=== PATIENT | male | born 1945 | race Caucasian/White ===

== ENCOUNTER → 2018-04-03 09:00 | Outpatient (CLI) | payer MEDICARE, BC, SELFPAY | PROVIDERS: PCP Emergency Medicine; Visit Provider Student in an Organized Health Care Education/Training Program | DX: M76.32 Iliotibial band syndrome, left leg (principal); M70.32 Other bursitis of elbow, left elbow | CPT/HCPCS: 99214 ==

== ENCOUNTER 2018-04-29 15:00 | Outpatient (RCR) | payer MEDICARE, BC, SELFPAY ==
--- NOTE | 2018-04-05 14:30 | PTTR_ITS ---
DATE: 04/05/18 SUBJECTIVE: Barrington states that he is looking to progress his HEP with some theraband. He brings in his yellow and green theraband to demonstrate some of his home activities such as side stepping. Had a good meeting with Dr. Schwartz who did confirm that this is likely an ITB issue. No injection was offered. Ultrasound [id number]: Applied 1 mhz, 50% pulsed duty phonophoresis to the proximal ITB 1.0 w/cm3 with dex followed Manual therapy: (91372w2). Piriformis/ITB stretching using hold/relax techniques. Therapeutic procedures (18446a7). Upgrade his HEP incorporating yellow theraband for piriformis, clam shell and bridging exercises. Verbal and tactile cues for proper hip alignment and engagement of TA musculature. Then completed remainder of his strengthening via wellness. Direct treatment time: 45 mins Total treatment time: 60 mins P: Continue as above, will resume soft tissue mobilization next visit. MM/dl
--- NOTE | 2018-04-08 16:09 | PTTR_ITS ---
DATE: 04/08/18 SUBJECTIVE: Barrington continues to report improvements in intensity and frequency of the clicking in his lateral hip. He is sleeping through the night painfree on his left side, now. OBJECTIVE: Manual therapy: (63247f4). IASTM via Graston Techniques using fanning and sweeping with GT 1 and GT 4 along the upper half of the IT band as well as IT band splaying with GT 4 and some trochanteric framing with GT 3. This was followed by hold relax stretching of the IT bands in supine using horizontal adduction. This is with the hip flexed approximately 25 to 30 . Therapeutic procedures (18615m2). * x See flow sheet: glute medius and piriformis strengthening. * Verbal and tactile cues were offered for proper pelvic alignment to avoid compensatory movement patterns. * [x] Ultrasound - (x 8 mins) - 33373a1: applied @1 megahertz 50% pulsed @ 1.0 watt per cm sq to the superior aspect of the IT band just inferior to the greater trochanter on the left with Dex gel Direct treatment time: 3:00 til 3:45 P.M. Assessment: Holding up very well with progression of strengthening. Improvements noted subjectively with decreased frequency and intensity of clicking in the hip. Plan: Continue as indicated above decreasing to 1x per week frequency. MM/gc
--- NOTE | 2018-04-15 14:14 | PTTR_ITS ---
DATE: 04/15/18 SUBJECTIVE: Barrington states that he had some discomfort yesterday of unknown source. Complained of lateral hip pain. Thinks he may have slept on it awkwardly. Overall, is making good gains with his frequency of clicking. Holding up well with his HEP. OBJECTIVE: Manual therapy: (94466u3). Left hip mobs inferiorly and laterally as well as stretching of the IT band, piriformis, hamstrings and soft tissue mobs via Graston Techniques to the IT band using GT 1 and GT 4 through the proximal half of the IT band and inferior aspect of the greater trochanter. Framing was done with GT 3 around the greater trochanter. He went on to complete a ther-ex routine with the COLD TYPE ARTIST. See her note for details. Direct treatment time: 2:30 til 3:00 P.M. Plan: Continue 1x per week. He is holding up well on a 1x per week frequency. Did discontinue ultrasound today. MM/gc
--- NOTE | 2018-04-15 15:00 | PTTR_ITS ---
DATE: 04/15/18 Co-treat with supervising PT, Benton Gr. OBJECTIVE: Therapeutic procedures (75792p2). * x See flow sheet: Focus on hip stabilization on the left. Added hip abduction on Hip Deck with Air Ex Pad and hip hicker with Air Ex Pad was added to program. Upgraded bridging with T-band abduction by adding Kyler Disc under feet. Performed an additional 20 minutes of wellness with assistive personnel at no charge. * x Provided skilled instruction in proper exercise performance * x Provided skilled manual cues to facilitate proper muscle recruitment and/ or movement pattern * Declined modalities at conclusion of session. Direct treatment time: 20 minutes Total treatment time: 40 minutes, post time spent with supervising PT.
--- NOTE | 2018-04-22 14:30 | PN_ITS ---
DATE: April 22, 2018 REFERRING: Dr. Zhao REFERRING PROVIDER DIAGNOSIS:: L hip pain PHYSICAL THERAPY DIAGNOSIS: REPORTING PERIOD (for progress note and discharge note only): 03/15/18 to SUBJECTIVE: Patient continues to report decreased frequency and intensity of L hip pain and popping. Admits the higher the stair, the more evident his click/pop is. He is sleeping through the night without discomfort in L sidelying position. Reports compliancy with his HEP. Standardized Measures: * Lower Extremity Functional Scale Score (LEFS): 24%, compared to 26% at [facility]. The biggest change thus far was stair negotiation, moving from a category of moderate difficulty to a little bit of difficulty. OBJECTIVE: Seen in PT Treatment: Manual Therapy [id number]: Performed instrument assisted soft tissue mobilization via Graston technique to the proximal third of the ITB with fanning and sweeping with GT 1 and 4 as well as some strumming on the proximal aspect of the ITB, inferior to the trochanter. Performed hold/relax stretching of ITB, TFL musculature. Treatment time: 30 mins with continued care with Ngozi Beck PTA (see her note) ASSESSMENT: Subjective/objective gains being made both with strength, flexibility, and pain levels. He no longer has a (+) Loy's testing on L. grinder tender to palpation over the superior aspect of ITB. Subjectively reports having reached STG 2&3. He is also independent with his HEP. All STG have been MET. LT remains appropriate and progressing towards. Stair ascension, dissension and uphill/down hill ambulation no longer significantly limited other than some occasional clicking particularly with higher steps where the ITB is likely being positioned to the greater trochanter, then returning to neutral hip position as it passes over the trochanter, experiencing the click, which is minimally painful now. Progressing towards LTG SEE BELOW: G-Codes (fill in modifier after appropriate code): Patient's primary functional limitation is in the category of: __x__ Mobility - walking and moving around : [id number] Projected goal: __x__ Mobility - walking and moving around: [id number], BASED ON LEFS STG: __6__ weeks. 1: Independent in HEP. 2: Improve sleeping tolerance to L sidelying positions by 75% 3: Patient performing uphill ambulation and stair ascension without limitation due to pain. LTG: __12__ weeks. 1: Return to premorbid level of function. PLAN: Continue as above on once a week basis, continuing to progress with hip stabilization. MM/dl
--- NOTE | 2018-04-22 15:00 | PTTR_ITS ---
DATE: 04/22/18 Co-treat with supervising PT, Benton Gr. OBJECTIVE: Therapeutic procedures ([id number]) * x See flow sheet: Following independent activity on stationary bike patient completed ther ex with focus on left hip stabilization. * x Provided skilled instruction in proper exercise performance * x Provided skilled manual cues to facilitate proper muscle recruitment and/ or movement pattern * Ended session with cryotherapy x 10 minutes to left hip. Direct treatment time: 20 minutes Total treatment time: 30 minutes
--- NOTE | 2018-04-29 08:11 | PTTR_ITS ---
DATE: 04/29/18 Co treatment with MOMO MirzaT: OBJECTIVE: Therapeutic procedures (70408n2). * x See flow sheet: for global LE strengthening with focus on gluts and hip stabilization. * x Provided skilled instruction in proper exercise performance: proper glut engagement. Direct treatment time: 20 min Total treatment time: 20 min
--- NOTE | 2018-04-29 15:30 | PTTR_ITS ---
DATE: 04/29/18 SUBJECTIVE: Patient states he exacerbated his hip pain by going on an 8 mile hike followed by a 5 mile hike the next day. Had increased clicking on the 2nd day hike. This left him in some increased discomfort that lasted a day or so. Did not ice, foam roll or take any medicine. Manual therapy: (11244n1). L hip mobilization, inferior, laterally as well as AAROM through flexion/abduction, IR/ER followed by hold/relax stretching, piriformis, ITB. We talk about self management of symptoms using ice, foam rolling tactics. ROM is near full on L with some mild discomfort at end range IR. This appears to be capsular though. Direct treatment time: 30 mins Total treatment time: 30 mins P: Continue 1x a week basis, will reconsider performing some instrument assisted soft tissue mobilization next visit if he is still symptomatic. MM/dl
== END 2018-05-03 23:59 | disposition home or self-care (01) ==
LOC: PT 15:00
PROVIDERS: PCP Emergency Medicine; Referring Provider Emergency Medicine; Visit Provider Emergency Medicine
DX: M70.62 Trochanteric bursitis, left hip (principal)
CPT/HCPCS: 97035; 97110; 97140; G8978

== ENCOUNTER 2018-09-30 04:18 | Emergency (ER) | payer MEDICARE, BC, SELFPAY ==
[2018-09-30 04:23] VITALS: BP 155/99; PULSE 77; RESP 15; TEMP 36.5; O2SAT 99
--- NOTE | 2018-09-30 04:45 | ED.GENADUL_ITS ---
Discharge Plan Disposition Patient Disposition: STILL A PATIENT Condition: Good Discharge Details Chief Complaint: FlankPain Clinical Impression: Kidney stone Primary Care Provider: Aman Zhao ED Provider: Lourdes Colon Home Meds and New Rx's Prescriptions: New hydrocodone-acetaminophen 7.5-325 mg tablet 1 tab PO Q6H PRN (Reason: pain) Qty: 5 RF: 0 tamsulosin 0.4 mg capsule 0.4 mg PO DAILY Qty: 7 RF: 0 No Action mometasone [Nasonex] 50 mcg/actuation spray,non-aerosol 2 spray NS DAILY PRNRF: 0 Crxazawz-Icxwye-RXX with vit D 1 EACH tablet 1 ea PO DAILY RF: 0 cetirizine 10 MG tablet 10 mg PO DAILY Qty: 90 RF: 3 ranitidine HCl [Zantac Maximum Strength] 150 MG tablet 150 mg PO BID Qty: 90 RF: 2 Eliquis 5 mg tablet 5 mg PO BID Qty: 180 RF: 3 Discharge Instructions Instructions: Kidney Stones (ED) Additional Instructions: Please strain your urine to look for the kidney stone. Please take the pain medication appearance. Please take the Flomax as directed until your symptoms are relieved with the stone passes. If you notice any worsening of your symptoms, or any new symptoms such as vomiting, diarrhea, fever, chills, shortness of breath, chest pain, numbness, weakness, or fainting , please return immediately to the emergency department for reevaluation. Please follow up with your primary care provider as soon as possible for reassessment and reevaluation. As always, it was a pleasure participating in your medical care today. Referrals: Aman Zhao DO [Primary Care Provider] - Discharge Data Discharge Date/Time-TO BE ENTERED AT DEPARTURE: 09/30/18 08:51 Medical Decision Making <González Forrester DO - Last Filed: 09/30/18 23:07> This is a pleasant 73-year-old male who presents for left flank pain. Is been present for the last 3-4 days but has been continuous for the last 10 hours. It is aching and sharp in nature, and radiates from his left flank to his left pelvis. He does have a sensation of urinary fullness and frequency. No red flags of testicular tenderness or signs of testicular torsion. We will get a CT scan to evaluate for acute process, however differential is highest for urolithiasis. Differential includes but I feels less likely diverticulitis or musculoskeletal etiology. Because of his Eliquis use will hold off on Toradol for the time being. 6:[address] scan has returned does show evidence of a left-sided urolithiasis. It is at the UVJ. Stone may be irregularly-shaped versus 2 2 x 2 mm calculus'. Pain is well controlled at this time. We have given an oral dose of Flomax here in the ED. Patient's laboratory workup is otherwise benign, renal function is slightly increased but otherwise stable. Are still pending urinalysis. Once the patient does urinate, if there is no evidence of infection since his pain is well controlled I feel he would be a good candidate for discharge. Because the patient is unable to tolerate ibuprofen/Motrin, I do feel that narcotics are both reasonable and indicated at this time. We will send the patient home with a small prescription for narcotic medication for pain control only to be used as needed. 7:33 AM Were still pending urinalysis. Patient will be signed out to my colleague Dr. Colon. I feel he can be safely discharged home if there is no evidence of infection. FINDINGS: Lower thorax: Basilar dependent pulmonary atelectasis is present. ABDOMEN: Liver: Normal. No mass. Gallbladder and bile ducts: Normal. No calcified stones. No ductal dilation. Pancreas: Normal. No ductal dilation. Spleen: Normal. No splenomegaly. Adrenals: Normal. No mass. Kidneys and ureters: Bilateral nonobstructing nephrolithiasis noted. Mild left- sided hydronephrosis and hydroureter noted to the level of the UVJ where an obstructing calculus measures approximately 2 x 2 millimeters. What may reflect an adjacent calculus measures approximately 2 mm versus an irregularly shaped single calculus. Stomach and bowel: Colonic diverticulosis is present without evidence for inflammation. Appendix: No evidence of appendicitis. PELVIS: Bladder: Unremarkable as visualized. Reproductive: Unremarkable as visualized. ABDOMEN and PELVIS: Intraperitoneal space: Normal. No free air. No significant fluid collection. Bones/joints: Lumbar spine degenerative disc disease is noted. Soft tissues: Unremarkable. Vasculature: Normal. No abdominal aortic aneurysm. Lymph nodes: Normal. No enlarged lymph nodes. IMPRESSION: Mild left-sided hydronephrosis and hydroureter noted to the level of the UVJ where an obstructing calculus measures approximately 2 x 2 millimeters. What may reflect an adjacent calculus measures approximately 2 mm versus an irregularly shaped single calculus. Thank you for allowing us to participate in the care of your patient. Dictated and Authenticated by: Ian Draper MD 09/30/2018 5:36 AM Eastern Time ([place] & [place]) <Lourdes Colon MD - Last Filed: 10/08/18 13:26> Patient signed out to me by Dr. Forrester at time of shift change pending UA. Prior to my assuming care, discharge paperwork printed and discharge discussion had by Dr. Forrester. UA shows no infection. Okay for discharge home. HPI <González Forrester DO - Last Filed: 09/30/18 23:07> General Date/Time Provider Initiated Documentation: 09/30/18 04:31 . HPI Narrative: This is a very pleasant 73-year-old male with a past medical history of pulmonary embolism on Eliquis, who presents today for evaluation of left flank pain peer it is been present for the last 3-4 days. It first started 4 days ago where is brief, achy, it lasted an hour, and happened again 2 days ago, also brief, and again yesterday. Last night at 1 AM he noticed the pain come back, sharp and achy, it went from his left flank and radiated down to the anterior pelvic region. No radiation to the genitals. He admits to increase sensation of urinary need, and a full bladder, but denies any dysuria or increase in urinary frequency. He denies any hematuria. He denies a history of kidney stones. He had one episode of vomiting earlier today, but denies any diarrhea. He denies any chest pain, shortness of breath, numbness tingling or weakness. He has taken acetaminophen, last time was at 3 AM. He denies any other modifying factors or any other complaints at this time. He denies any previous abdominal surgeries. Related Data Home Medications Medication Instructions Recorded Confirmed [id number] 2-C-D3-tonny 1 ea PO DAILY 01/29/18 10/03/18 [Mgpjjrmeva-Ofhrlxendcj-Onv Tab] cetirizine 10 mg PO DAILY #90 tab-cap 02/22/18 10/03/18 ranitidine HCl [Zantac] 150 mg PO BID #90 tab-cap 04/16/18 10/03/18 apixaban 5 mg tablet 5 mg PO BID #180 tab 06/11/18 10/03/18 mometasone 50 mcg/actuation nasal 2 spray NS DAILY PRN gm 08/08/18 10/03/18 spray hydrocodone-acetaminophen 1 tab PO Q6H PRN #5 tab 09/30/18 10/03/18 tamsulosin 0.4 mg PO DAILY #7 cap 09/30/18 10/03/18 Previous Rx's Medication Instructions Recorded cetirizine 10 mg PO DAILY #90 tab-cap 02/22/18 ranitidine HCl [Zantac] 150 mg PO BID #90 tab-cap 04/16/18 apixaban 5 mg tablet 5 mg PO BID #180 tab 06/11/18 hydrocodone-acetaminophen 1 tab PO Q6H PRN #5 tab 09/30/18 tamsulosin 0.4 mg PO DAILY #7 cap 09/30/18 Allergies Allergy/AdvReac Type Severity Reaction Status Date / Time No Known Allergies Allergy Verified 10/03/18 13:26 General Stated Complaint: FlankPain ABILIO: 3 Review of Systems <González Forrester DO - Last Filed: 09/30/18 23:07> Review of Systems All systems reviewed & are unremarkable except as noted in HPI and below PFSH <González Forrester DO - Last Filed: 09/30/18 23:07> Medical History GERD (gastroesophageal reflux disease) Osteoarthritis Seasonal allergies Surgical History [facility] (06/18/15) Extraction of cataract PROCEDURE Family History Mother No problems noted. Father No problems noted. Brother Heart disease Grandfather Neoplasm Grandfather No problems noted. Grandmother Diabetes Grandmother No problems noted. Social History Smoking/Tobacco Use Status: Former Tobacco Use Exam <González Forrester DO - Last Filed: 09/30/18 23:07> Narrative Exam Narrative: 1.Const: Well-nourished, Well-developed, appearing stated age 2.Eyes: PERRL, no conjunctival injection, and symmetrical lids. 3.ENT: Atraumatic external nose and ears. Moist MM. Neck: Symmetric, trachea midline, No thyromegaly. 4.CVS: +S1/S2, No murmurs or gallops. Peripheral pulses 2+ and equal in all extremities. Brisk capillary refill in all extremities. 5.RESP: Unlabored respiratory effort. Clear to auscultation bilaterally. No wheezes rales or rhonchi 6.GI: Soft, Nondistended, No hepatosplenomegaly. No guarding or rebound. Minimal left-sided abdominal tenderness. Testicular exam was performed demonstrates normal bilaterally descended testicles, normal cremasteric reflex. No urethral pain. No scrotal or penile pain. No blood at the urethral meatus. Notable left-sided CVA tenderness on percussion. Negative obturator and psoas sign. 7.MSK: Normocephalic/Atraumatic, Extremities w/o deformity or ttp No cyanosis or clubbing, Normal movement of all extremities 8.Skin: Warm, Dry. No rashes or lesions. 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 Sensation grossly intact, no focal neurologic deficits. 10.Psych: (AAO) x3. Appropriate mood and affect Course <González Forrester, DO - Last Filed: 09/30/18 23:07> Vital Signs Temperature 36.5 C 09/30/18 04:23 Pulse 77 09/30/18 04:23 Respiratory Rate 15 09/30/18 04:23 Blood Pressure 155/99 H 09/30/18 04:23 Pulse Oximetry 99 09/30/18 04:23 Temperature 36.5 C 09/30/18 04:23 Temperature Source Temporal Artery Scan 09/30/18 04:23 Pulse 77 09/30/18 04:23 Respiratory Rate 15 09/30/18 04:23 Respiratory Effort 09/30/18 04:30 Blood Pressure 155/99 H 09/30/18 04:23 Blood Pressure Position Sitting 09/30/18 04:23 Pulse Oximetry 99 09/30/18 04:23 Oxygen Delivery Method Room Air 09/30/18 04:23 Oxygen Flow Rate 0 09/30/18 04:23 Pain Level 6 09/30/18 04:40 Sign Out <González Forrester DO - Last Filed: 09/30/18 23:07> Sign Out Data: Sign Out Comment: Pending urinalysis results, if no infection, discharge home with printed paperwork Last updated by González Forrester DO at 09/30/18 07:45
[2018-09-30] MEDS: MORPHine 10 MG/ML VIAL 4 MG IVP (04:51)
[2018-09-30] MEDS: Normal Saline 1,000 ML 1000 ML IV ×2 (04:51→06:34)
[2018-09-30 04:59] LABS: Abs Immature Grans 0.02 k/cumm (0.0-0.09); Absolute Basophil Count 0.01 k/cumm (0.0-0.2); Absolute Eosinophil Count 0.19 k/cumm (0.0-0.7); Absolute Lymphocyte Count 1.88 k/cumm (1.2-3.4); Absolute Monocyte Count 0.57 k/cumm (0.11-0.7); Absolute Neutrophil Count 4.38 k/cumm (1.2-6.7); Basophils % 0.1; Eosinophils % 2.7; HGB 14.8 g/dL (13.5-17.5); Immature Grans % 0.3; Lymphocytes % 26.7; Mean Corp. HGB Concentration 33.6 g/dL (32.0-36.0); Mean Corpuscular Hemoglobin 28.2 pg (27.0-33.0); Mean Corpuscular Volume 83.8 fL (80-95); Mean Platelet Volume 9.5 fL (8.0-11.0); Monocytes % 8.1; Neutrophils % 62.1; Platelet Count 201 x1000/uL (130-400); RBC 5.25 m/cumm (4.50-6.00); RBC Distribution Width 13.7 % (11.8-14.1); White Blood Cell Count 7.05 k/cumm (4.4-10.8)
[2018-09-30 05:07] LABS: ALT 32 U/L (12-78); AST 24 U/L (15-37); Albumin 3.8 g/dL (3.4-5.0); Alkaline Phosphatase 61 U/L (46-116); Anion Gap 9.3 mmol/L (3-11); BUN 24 mg/dL (7-18); Bilirubin, Total 0.5 mg/dL (0.2-1.0); CO2 27.7 mmol/L (21.0-32.0); CREATININE 1.39 mg/dL (0.70-1.30); Calcium 8.6 mg/dL (8.5-10.1); Chloride 106 mmol/L (98-107); Estimated GFR 50.09 (mL/min/1.73m2); Glucose 103 mg/dL (70-100); Potassium 4.1 mmol/L (3.5-5.1); Sodium 143 mmol/L (136-145); Total Protein 7.4 g/dL (6.4-8.2)
--- NOTE | 2018-09-30 05:20 | DI.CT_ITS ---
SYMPTOM/DIAGNOSIS: LEFT FLANK PAIN, R/O STONE NONCONTRAST CT ABDOMEN AND PELVIS: There is moderate left hydronephrosis secondary to a 2 mm stone at the ureterovesical junction. There is an adjacent 1 mm stone. A tiny nonobstructing stone is seen in the lower pole of the left kidney. Small nonobstructing stone is seen in the mid right kidney. There is a low density area in the mid right kidney, presumably a cyst. This was included on a previous chest CT and appears unchanged. The lung bases appear clear. The liver, gallbladder, spleen, pancreas and adrenals are unremarkable. The prostate appears normal in size. The bladder is unremarkable. Scattered diverticula are noted in the sigmoid colon. There is no evidence of diverticulitis. The appendix appears normal. There is no small bowel dilatation. IMPRESSION: Moderate left hydronephrosis secondary to a 2 mm stone at the ureterovesical junction.
--- NOTE | 2018-09-30 05:36 | DI.VRAD_ITS ---
EXAM: CT Abdomen and Pelvis Without Contrast EXAM DATE/TIME: 09/30/2018 4:41 AM CLINICAL HISTORY: 73 years old, male; Pain; Other: L flank and llq; Patient HX: L flank and llq pain TECHNIQUE: Axial computed tomography images of the abdomen and pelvis without contrast. All CT scans at this facility use at least one of these dose optimization techniques: automated exposure control; mA and/or kV adjustment per patient size (includes targeted exams where dose is matched to clinical indication); or iterative reconstruction. Coronal and sagittal reformatted images were created and reviewed. COMPARISON: CR LEFT HIP COMPLETE \T\ AP PELVIS 01/29/2018 2:59 PM FINDINGS: Lower thorax: Basilar dependent pulmonary atelectasis is present. ABDOMEN: Liver: Normal. No mass. Gallbladder and bile ducts: Normal. No calcified stones. No ductal dilation. Pancreas: Normal. No ductal dilation. Spleen: Normal. No splenomegaly. Adrenals: Normal. No mass. Kidneys and ureters: Bilateral nonobstructing nephrolithiasis noted. Mild left-sided hydronephrosis and hydroureter noted to the level of the UVJ where an obstructing calculus measures approximately 2 x 2 millimeters. What may reflect an adjacent calculus measures approximately 2 mm versus an irregularly shaped single calculus. Stomach and bowel: Colonic diverticulosis is present without evidence for inflammation. Appendix: No evidence of appendicitis. PELVIS: Bladder: Unremarkable as visualized. Reproductive: Unremarkable as visualized. ABDOMEN and PELVIS: Intraperitoneal space: Normal. No free air. No significant fluid collection. Bones/joints: Lumbar spine degenerative disc disease is noted. Soft tissues: Unremarkable. Vasculature: Normal. No abdominal aortic aneurysm. Lymph nodes: Normal. No enlarged lymph nodes. IMPRESSION: Mild left-sided hydronephrosis and hydroureter noted to the level of the UVJ where an obstructing calculus measures approximately 2 x 2 millimeters. What may reflect an adjacent calculus measures approximately 2 mm versus an irregularly shaped single calculus. Dictated and Authenticated by: Ian Draper MD. Ordering:BETTY Claudio MD
[2018-09-30] MEDS: Tamsulosin 0.4 MG CAPCR PO (05:45)
[2018-09-30 06:03] VITALS: BP 123/87; PULSE 72; RESP 14; TEMP 36.5; O2SAT 99
[2018-09-30 07:46] LABS: Bilirubin Negative (Negative); Blood Small (Negative); Clarity Clear; Glucose Negative (Negative); Ketones Negative (Negative); Leukocyte Esterase Negative (Negative); Nitrite Negative (Negative); Specific Gravity 1.015 (1.005-1.025); Urobilinogen 0.2 EU/dL (Up TO 0.2)
[2018-09-30 07:55] LABS: Bacteria Few HPF (Negative); C & S Indicated? No; Casts Negative LPF (Negative); Crystals Negative HPF (Negative); Epithelial Cells Few HPF (Negative); Mucus Moderate (Negative); WBC 0-2 HPF (0-5)
[2018-09-30 08:40] VITALS: BP 159/74; PULSE 63; RESP 18; TEMP 36.7; O2SAT 97
== END 2018-09-30 08:51 | disposition still patient (30) ==
PROVIDERS: Student in an Organized Health Care Education/Training Program; Emergency Provider Student in an Organized Health Care Education/Training Program; PCP Emergency Medicine
DX: N13.2 Hydronephrosis with renal and ureteral calculous obstruction (principal)
CPT/HCPCS: 36415; 80053; 96361; 96374; 99284; 74176; 81003; 81015; 85025; 99285; J2270

== ENCOUNTER 2018-10-07 01:06 | Outpatient (CLI) | payer MEDICARE, BC, SELFPAY ==
--- NOTE | 2018-10-07 10:39 | DI.US_ITS ---
SYMPTOM/DIAGNOSIS: LT KIDNEY STONE, N20.0 RENAL ULTRASOUND: Comparison is made with CT of the abdomen and pelvis dated 09/30/18. The kidneys are normal in size and show normal parenchymal thickness and echogenicity. No hydronephrosis is seen in either kidney. A small cyst is noted in the mid right kidney. The prevoid bladder volume measures 129 cc's. Both ureteral jets were visualized. The patient was unable to void. The prostate volume is 59 cc's. IMPRESSION: No evidence of hydronephrosis. The previously noted left hydronephrosis has resolved.
[2018-10-07 12:58] LABS: Anion Gap 7.3 mmol/L (3-11); BUN 20 mg/dL (7-18); CO2 28.7 mmol/L (21.0-32.0); CREATININE 1.02 mg/dL (0.70-1.30); Calcium 8.8 mg/dL (8.5-10.1); Chloride 106 mmol/L (98-107); Glucose 99 mg/dL (70-100); Potassium 4.8 mmol/L (3.5-5.1); Sodium 142 mmol/L (136-145)
== END 2018-10-07 01:26 ==
PROVIDERS: PCP Emergency Medicine; Visit Provider Emergency Medicine
DX: N20.0 Calculus of kidney (principal); N28.1 Cyst of kidney, acquired; I10 Essential (primary) hypertension
CPT/HCPCS: 36415; 76770; 80048

== ENCOUNTER 2019-03-11 09:37 | Outpatient (CLI) | payer MEDICARE, BC, SELFPAY ==
[2019-03-12 08:58] LABS: PSA, Screening 0.8 ng/ml (0-6.5)
== END 2019-03-11 09:57 ==
PROVIDERS: PCP Emergency Medicine; Visit Provider Emergency Medicine
DX: N40.0 Benign prostatic hyperplasia without lower urinary tract symptoms (principal); Z12.5 Encounter for screening for malignant neoplasm of prostate
CPT/HCPCS: 36415; 84153

== ENCOUNTER 2019-05-21 13:39 | Outpatient (CLI) | payer MEDICARE, BC, SELFPAY ==
--- NOTE | 2019-05-21 13:45 | DI.RAD_ITS ---
EXAM: XR KNEE LT 3V AP,LAT,ROBERT INDICATION: left knee pain, M25.562. COMPARISON: RIGHT KNEE 3 VIEWS from 02/19/2012 TECHNIQUE: 2D digital imaging was performed. FINDINGS: There appears to be mild narrowing of the cartilaginous joint space of the medial tibiofemoral joint. Mild marginal osteophyte formation noted at multiple sites. No other significant bony abnormality seen. There is a probable small joint effusion. IMPRESSION: Mild DJD
[2019-05-21 14:55] LABS: ESR 8 mm/hr (1-20)
[2019-05-22 12:07] LABS: Lyme Ab w Rflx to Lyme Confirm Negative
== END 2019-05-21 13:59 ==
PROVIDERS: PCP Emergency Medicine; Visit Provider Emergency Medicine
DX: M25.562 Pain in left knee (principal); M17.12 Unilateral primary osteoarthritis, left knee; M25.462 Effusion, left knee
CPT/HCPCS: 36415; 73562; 85652; 86618

== ENCOUNTER → 2019-06-25 09:41 | Outpatient (BNVA) | payer MEDICARE, BC, SELFPAY | PROVIDERS: PCP Emergency Medicine; Referring Provider Emergency Medicine; Visit Provider Student in an Organized Health Care Education/Training Program | DX: M23.92 Unspecified internal derangement of left knee (principal) | CPT/HCPCS: 99204; 99215 ==

== ENCOUNTER 2019-07-28 02:20 | Outpatient (CLI) | payer MEDICARE, BC, SELFPAY ==
--- NOTE | 2019-07-28 10:41 | DI.MRI_ITS ---
EXAM: MR LOWER JOINT LT WO CLINICAL HISTORY: Effusion, concern for lateral meniscus tear, internal derangement, M23.92. TECHNIQUE: Multiplanar multisequence MRI was performed. COMPARISON: XR KNEE LT 3V AP,LAT,ROBERT from 05/21/2019 FINDINGS: There is some fluid on the anterior cruciate ligament, which appears somewhat thinned. Findings coul d represent a partial tear. Posterior cruciate ligament, medial and lateral collateral ligaments and extensor mechanism appear intact. There is some intermediate signal within the body of the medial me niscus, which appears somewhat peripherally displaced, consistent with degenerative changes. Mild de generative intrasubstance signal changes seen in the lateral meniscus. There is cartilage thinning e xtending down to bone involving posterior aspect of the medial femoral condyle. There is a focal are a of chondromalacia involving the lateral patellar facet superiorly, which extends down to involve th e underlying bone. There is a moderate-sized joint effusion. A few small subchondral cysts are seen near the tibial spines anteriorly. There is edema without focal linear defect in the medial tibial p lateau, which could indicate a bone contusion. IMPRESSION: 1. Question of partial ACL tear. 2. 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 3. Mild contusion of the medial tibial plateau.
== END 2019-07-28 02:40 ==
PROVIDERS: PCP Emergency Medicine; Visit Provider Student in an Organized Health Care Education/Training Program
DX: M25.462 Effusion, left knee (principal); S83.512A Sprain of anterior cruciate ligament of left knee, initial encounter; M94.262 Chondromalacia, left knee; S80.02XA Contusion of left knee, initial encounter
CPT/HCPCS: 73721

== ENCOUNTER → 2019-08-06 08:37 | Outpatient (BNVA) | payer MEDICARE, BC, SELFPAY | PROVIDERS: PCP Emergency Medicine; Referring Provider Emergency Medicine; Visit Provider Student in an Organized Health Care Education/Training Program | DX: M94.262 Chondromalacia, left knee (principal); M23.92 Unspecified internal derangement of left knee | CPT/HCPCS: 99214 ==

== ENCOUNTER 2021-05-17 17:48 | Outpatient (REF) | payer MEDICARE, BC, SELFPAY ==
--- NOTE | 2021-05-17 16:30 | SKI_PTH ---
PATIENT: Barrington Arce LOC: [facility] U#:[id number] AGE/SX: 76/M ROOM: RE05/17/[address]: Aman Zhao DO : 1945 BED: DIS: 05/17/2021 SPEC #: [id number] RECD: 05/18/21 12:06 STATUS: JOSEE LOMELI #: [id number] LULA: 05/17/21 16:[address]: Aman Zhao DEPT: Surgical Specimen RECD BY: Sydnee Espinoza Tissues: 1 - SKIN BIOPSY(SHAVE/PUNCH) 2 - SKIN BIOPSY(SHAVE/PUNCH) Procedures: SKIN LEVEL 4 Comments: [id number]
== END 2021-05-17 17:49 | disposition home or self-care (01) ==
LOC: LBN 17:48
PROVIDERS: PCP Emergency Medicine; Visit Provider Emergency Medicine
DX: D22.5 Melanocytic nevi of trunk (principal); L82.1 Other seborrheic keratosis
CPT/HCPCS: 88305

== ENCOUNTER 2021-09-07 12:54 | Outpatient (REF) | payer MEDICARE, SELFPAY | END 2021-09-07 12:55 | disposition home or self-care (01) | LOC: RPT 12:54 | PROVIDERS: PCP Emergency Medicine; Visit Provider Emergency Medicine ==

== ENCOUNTER 2022-09-20 15:06 | Outpatient (REF) | payer MEDICARE, SELFPAY ==
--- NOTE | 2022-09-20 11:46 | SKI_PTH ---
PATIENT: Barrington Arce LOC: [facility] U#:[id number] AGE/SX: 77/M ROOM: RE09/20/[address]: Akilah Duvall : 1945 BED: DIS: 09/20/2022 SPEC #: [id number] RECD: 09/21/22 11:34 STATUS: JOSEE REQ #: [id number] LULA: 09/20/22 11:[address]: Akilah Duvall DEPT: Surgical Specimen RECD BY: Sydnee Espinoza ENTERED: 09/21/22 12:09 SP TYPE: HAKAN SAENZ DR: Aleksandr Duarte, [employer] Tissues: 1 - SKIN BIOPSY(SHAVE/PUNCH) Procedures: SKIN LEVEL 4 SPECIAL STAIN 1 Comments: [id number]
== END 2022-09-20 15:07 | disposition home or self-care (01) ==
LOC: LBN 15:06
PROVIDERS: PCP Nurse Practitioner Family; Visit Provider Family Medicine
DX: L40.8 Other psoriasis (principal); L85.8 Other specified epidermal thickening
CPT/HCPCS: 88305; 88312

== ENCOUNTER 2022-11-15 02:36 | Outpatient (CLI) | payer MEDICARE, SELFPAY ==
[2022-11-15 12:54] LABS: CREATININE 1.3 mg/dL (0.70-1.30); Estimated GFR 56.58 (mL/min/1.73m2); Potassium 4.3 mmol/L (3.5-5.1)
== END 2022-11-15 02:37 | disposition home or self-care (01) ==
PROVIDERS: PCP Nurse Practitioner Family; Visit Provider Nurse Practitioner Family
DX: I10 Essential (primary) hypertension (principal)
CPT/HCPCS: 36415; 82565; 84132

== ENCOUNTER 2023-01-31 11:32 | Outpatient (CLI) | payer MEDICARE, SELFPAY ==
--- NOTE | 2023-01-31 15:10 | DI.RAD_ITS ---
Exam(s) XR WRIST RT COMPLETE EXAM: XR WRIST RT COMPLETE CLINICAL HISTORY: right wrist pain M25.531 PAIN RT WRIST. TECHNIQUE: 2D digital imaging was performed. Three views. COMPARISON: No exams were available for comparison FINDINGS: BONES: No acute fracture is present. No bony destructive lesion is seen. JOINTS: These scapholunate distance is not well profiled. Gpum-uk-rtutmnvg degenerative changes ar e noted at the 1st carpal metacarpal joint. There is also severe narrowing between the capitate and lunate. SOFT TISSUE: Normal. IMPRESSION: Degenerative changes at the capitate lunate articulation and 1st carpometacarpal joint. DATA REPOSITORY: RADIATION DOSE DELIVERED:
== END 2023-01-31 11:52 ==
LOC: DI 11:32
PROVIDERS: PCP Nurse Practitioner Family; Visit Provider Emergency Medicine
DX: M18.31 Unilateral post-traumatic osteoarthritis of first carpometacarpal joint, right hand
CPT/HCPCS: 73110

== ENCOUNTER 2023-02-13 02:09 | Outpatient (CLI) | payer MEDICARE, SELFPAY ==
[2023-02-13 15:52] LABS: Uric Acid 8.2 mg/dL (3.5-7.2)
== END 2023-02-13 02:10 | disposition home or self-care (01) ==
PROVIDERS: PCP Nurse Practitioner Family; Visit Provider Nurse Practitioner Family
DX: M10.9 Gout, unspecified (principal)
CPT/HCPCS: 36415; 84550

== ENCOUNTER 2023-04-04 03:56 | Outpatient (CLI) | payer MEDICARE, SELFPAY ==
[2023-04-04 13:32] LABS: ALT 41 U/L (16-63); AST 27 U/L (15-37); Albumin 3.6 g/dL (3.4-5.0); Alkaline Phosphatase 72 U/L (46-116); Anion Gap 6.4 mmol/L (3-11); BUN 26 mg/dL (7-18); Bilirubin, Total 0.6 mg/dL (0.2-1.0); CO2 29.6 mmol/L (21.0-32.0); CREATININE 1.3 mg/dL (0.70-1.30); Calcium 8.8 mg/dL (8.5-10.1); Chloride 105 mmol/L (98-107); Estimated GFR 56.23 (mL/min/1.73m2); Glucose 129 mg/dL (74-106); Potassium 3.9 mmol/L (3.5-5.1); Sodium 141 mmol/L (136-145); Total Protein 7.1 g/dL (6.4-8.2)
== END 2023-04-04 03:57 | disposition home or self-care (01) ==
PROVIDERS: PCP Nurse Practitioner Family; Visit Provider Nurse Practitioner Family
DX: F10.20 Alcohol dependence, uncomplicated (principal)
CPT/HCPCS: 36415; 80053

== ENCOUNTER → 2023-10-03 13:30 | Outpatient (BNVA) | payer MEDICARE, SELFPAY | PROVIDERS: PCP Nurse Practitioner Family; Referring Provider Nurse Practitioner Family; Visit Provider Surgery | DX: K46.9 Unspecified abdominal hernia without obstruction or gangrene (principal) | CPT/HCPCS: 99203 ==

== ENCOUNTER → 2023-10-11 15:19 | Outpatient (CLI) | payer MEDICARE, SELFPAY ==
--- NOTE | 2023-10-11 16:00 | DI.RAD_ITS ---
Exam(s) XR FOOT RT COMPLETE EXAM: XR FOOT RT COMPLETE CLINICAL HISTORY: MTP JOINT OF RT FOOT, DJD M79.676 PAIN IN TOE. TECHNIQUE: 2D digital imaging was performed. Three views. COMPARISON: None FINDINGS: BONES: No acute fracture is present. No bony destructive lesion is seen. Screw noted in base of 1st proximal phalanx. Screw in head of 2nd metatarsal. Prominent spur at 2nd metatarsal metaphysis. Sm all plantar calcaneal spur. JOINTS: No dislocation present. Interphalangeal joint space narrowing. Minimal degenerative changes at the metatarsal phalangeal joints and intertarsal joints. Spurring noted at distal tibia. SOFT TISSUE: Normal. IMPRESSION: Postsurgical changes. Mild degenerative changes DATA REPOSITORY: RADIATION DOSE DELIVERED:
== END ==
PROVIDERS: PCP Neuromusculoskeletal Medicine & OMM; Visit Provider Neuromusculoskeletal Medicine & OMM
DX: Z98.890 Other specified postprocedural states (principal)
CPT/HCPCS: 73630

== ENCOUNTER 2023-10-11 15:55 | Outpatient (CLI) | payer MEDICARE, SELFPAY ==
[2023-10-11 16:18] LABS: Uric Acid 8.7 mg/dL (3.5-7.2)
== END 2023-10-11 15:56 | disposition home or self-care (01) ==
LOC: LBO 15:55
PROVIDERS: PCP Neuromusculoskeletal Medicine & OMM; Visit Provider Neuromusculoskeletal Medicine & OMM
DX: M10.9 Gout, unspecified (principal)
CPT/HCPCS: 36415; 84550

== ENCOUNTER 2024-01-04 08:59 | Day surgery (SDC) | payer MEDICARE, SELFPAY ==
--- NOTE | 2024-01-03 16:59 | PDOC.DSDIS_ITS ---
Date of service: 01/04/24 Time of Service: 12:06 Discharge Plan Disposition Patient Disposition: Home Condition: Good Discharge Details Reason For Visit: Bilateral inguinal hernia repair Attending Provider: Edy Nevarez Primary Care Provider: Aleksandr Duarte Home Meds and New Rx's Prescriptions: New tramadol 50 mg tablet 50 mg PO Q8H PRNQty: 15 0RF Rx Instructions: Take 1 tablet by mouth up to every 8 hours if needed for severe pain. These tablets can be broken in half for smaller doses. Continued psyllium husk [Metamucil] 0.4 gram capsule 0.4 g PO DAILY fluticasone propionate [Flonase Allergy Relief] 50 mcg/actuation spray,suspension 1 spray intranasal BID PRN (Reason: nasal congestion) Qty: 16 0RF Rx Instructions: administer into each nostril magnesium 200 mg tablet 200 mg PO DAILY magnesium gluconate 12.5 mg magne- sium (250 mg) tablet 500 mg PO TID magnesium citrate 125 mg capsule 125 mg PO DAILY Ccrkwesb-Uhhome-AOO with vit D 1 EACH tablet 1 ea PO DAILY cetirizine 10 mg tablet 10 mg PO DAILY Qty: 90 3RF famotidine 20 mg tablet 20 mg PO BID Qty: 180 3RF hydrochlorothiazide 25 mg tablet 25 mg PO QAM Qty: 90 3RF sildenafil 50 mg tablet 50 mg PO DAILY PRN (Reason: sexual activity) Qty: 10 3RF Rx Instructions: administer 30 minutes to 4 hours before activity colchicine 0.6 mg tablet 0.6 mg PO BID Qty: 30 0RF Rx Instructions: Take two tablets on first day and then one hour later take one more tablet. On day two take twice daily until symptoms resolve. allopurinol 100 mg tablet 100 mg PO DAILY Patient Comments: TAKE ONE TABLET BY MOUTH EVERY DAY Held apixaban 2.5 mg tablet 2.5 mg PO BID Qty: 180 3RF Hold Instructions: Resume on 01/05/24. Discharge Instructions Instructions: Inguinal Hernia Repair (DC) Additional Instructions: Barrington, we were able to repair your hernia today without much difficulty. Like we talked about beforehand, inguinal hernia repair can be fairly painful. Hopefully, the nerve blocks will help, and have provided a prescription for some more medication if needed. Like we talked about beforehand, expect to see some bruising in the area which is quite common. I would like to have you up and moving around a little bit each day, every day should be a little more than the day before. Walking is excellent exercise, and will help keep the tissue healthy and reduce the duration of your recovery. I would like you to keep your lifting less than 5 pounds. Please be sure to let us know if you have any difficulty with urinating over the next 24 to 48 hours. This can be common in men who have both hernias repaired at the same time. Hopefully that will not bother you though, and you will feel great before you know it. I look forward to seeing you in the office, and like I said if you need anything at all, please let me know. 1. Resume all of your regular medications at the regular scheduled except the apixaban, which I would like you to resume on Sunday night 2. Alternate heating pads and ice packs over the incisions if needed for pain. 3. Alternate bhqa-kkw-xinnqtk ibuprofen and Tylenol for the first 48 hours. Then use it as needed. Use the prescription for tramadol if needed for more severe pain. 4. Leave bandages in place for 24 hours, then remove. 5. Shower with warm soapy water. Pat dry. Use a bandaids if needed to protect your clothing. 6. No soaking or tub baths until I see you in the office. 7. No heavy lifting until I see you in the office. 8.Call the office (or go directly to the emergency room after hours) if you notice any of the following: Develop chills (warm to touch), or if you have a thermometer and your temperature is above 101 Difficulty breathing or difficultly swallowing Persistent vomiting Any bleeding ? exceeding one tablespoon 6. Call your physician if the site where your intravenous was started becomes red, swollen, painful, and warm to touch. Stand Alone Forms: Anesthesia Discharge Inst., Anes.Nerve Block Instructions, Pascale Mondragon (DSU) Referrals: Edy Nevarez MD [ [facility] STAFF PHYSICIAN] - 01/22/24 8:30 am Activity:: No heavy lifting Remove Dressings/Wound Care:: 24 hours Shower/Bathe:: 24 hours Diet:: As Tolerated Discharge Orders Discharge Orders: Discharge Order (Routine); Ordered 01/03/24 Ordered By: Edy Nevarez DS: Diagnosis Discharge Diagnosis (1) Bilateral inguinal hernia (BIH): Status: Acute Asessment and Plan: Postoperative follow-up 10 to 14 days
--- NOTE | 2024-01-03 17:00 | ROE_ITS ---
Date of service: 01/04/24 Time of Service: 12:01 Operative Note Operative Note DATE OF PROCEDURE: 01/04/24 PRE-OP DIAGNOSIS: Bilateral inguinal hernias PROCEDURE: Open bilateral inguinal herniorrhaphy SURGEON: Edy Nevarez FORENSIC DOCUMENT EXAMINER: Gabbie Burch ANESTHESIA TYPE: Local By Surgeon and General LMA/ETT Refer to Anesthesia Record ESTIMATED BLOOD LOSS: 25 COMPLICATIONS: None Patient was transported to: PACU Patient's condition: stable Implants: Bard PerFix light large plug and patch on the right side, and Bard PerFix light large plug and patch on the left Indications: Barrington is a 78-year-old male with symptomatic bilateral inguinal hernias Findings: Indirect bilateral inguinal hernias Procedure Description: I began by confirming the planned bilateral procedure with the patient. Next, after induction of general anesthesia the patient underwent bilateral ultrasound-guided tap blocks by the anesthesia team. Both groins were prepped and draped. Surgical towel was used to cover the right side, as we began on the left. I began by making an oblique incision over the left inguinal region. I dissected down through the skin to the deep fascia. Next, I incised the fascia along the length of the inguinal canal to the external ring. The external fascia was quite attenuated. I then carefully identified the ilioinguinal nerve and sharply divided. Once this was complete, I bluntly dissected the shelving edge of the inguinal ligament down towards the pubic tubercle. Here, I encircled all cord structures with a Daphney drain. Next, I began dissecting the specific cord structures. Great care was taken to spare the vas deferens and the blood supply to the testicle. Next, I isolated the hernia sac from the other inguinal structures. I reduced it back to its normal anatomic position. I then used a large mesh plug to obliterate the defect at the internal ring. I fixed in place with interrupted Prolene stitches. Next, I buttressed the posterior floor of the inguinal canal with a large mesh patch. I started by fixing it to the pubic tubercle. Next, I used Prolene sutures to affix it to the shelving edge of the inguinal ligament and the conjoined tendon. Laterally I tacked it to the internal oblique fascia and reconstructed an internal ring without any strain on the cord structures. Once this was complete, I irrigated the surgical field. It appeared hemostatic. I then closed the anterior portion of the fascia to reconstruct the front wall of the inguinal canal. I did this with Vicryl stitches. Once again, I irrigated the surgical field and inspected for hemostasis. Finally, I approximated the superficial fascia and the deep layers of the skin with absorbable suture. Skin was closed with running subcuticular stitches. The left side was then covered with surgical towel, we turned our attention to dissection of the right inguinal region. Using identical technique, dissection was conducted down to the level of the external fascia, which, similar to the left side, was very attenuated. The fascia was opened as well as the external ring. The cord structures and hernia were carefully dissected just as the left was. An indirect inguinal hernia was reduced back into the peritoneal space, and a large mesh plug was used to obliterate the defect. This was affixed in place with a Prolene suture as well. Next, the floor was reconstructed with a mesh patch just as the left side. Prolene was used to fix this in place as well. Site was irrigated, and all of the external layers were then reconstructed using the same technique as the left side. Once the skin was closed, bandages were applied, the patient was allowed awaken from the anesthetic and transferred to the recovery unit.
[2024-01-04] VITALS (8 sets, daily range): BP systolic 128–163; BP diastolic 62–84; PULSE 54–75; RESP 11–18; TEMP 36.1–36.6; O2SAT 94–100; BMI 25.9
--- NOTE | 2024-01-04 09:23 | W.ANESPRE ---
General Info Date of Service Date Performed: 01/04/24 Height: 6 ft 5 in Weight: 99 kg Body Mass Index (BMI): 25.9 Surgical Procedure: Operation Date: 01/04/24 10:40 Proposed Procedure Side Surgeon p Herniorrhaphy Inguinal Bilateral Edy Nevarez MD Meds Allergies and Home Medications Allergies Allergy/AdvReac Type Severity Reaction Status Date / Time amlodipine AdvReac Intermediate edema Verified 01/04/24 09:12 Home Medication Medication Instructions Recorded glucosamine 750 ea-nbgejx-vxh 2-C 1 ea PO DAILY 01/29/18 30 mg-D3 1,000 unit-tonny 1 mg tablet (Atcnvrkvfea-Kwbtsurvppv-BZK + vitD) psyllium husk 0.4 gram capsule 0.4 g PO DAILY 04/21/21 (Metamucil) cetirizine 10 mg tablet 10 mg PO DAILY #90 tab-caps 01/02/22 fluticasone propionate 50 1 spray intranasal BID PRN nasal 11/21/22 mcg/actuation nasal congestion #16 grams spray,suspension (Flonase Allergy Relief) apixaban 2.5 mg tablet 2.5 mg PO BID #180 tabs 05/16/23 famotidine 20 mg tablet 20 mg PO BID #180 tabs 05/16/23 hydrochlorothiazide 25 mg tablet 25 mg PO QAM #90 tabs 05/16/23 sildenafil 50 mg tablet 50 mg PO DAILY PRN sexual activity 05/30/23 #10 tabs colchicine 0.6 mg tablet 0.6 mg PO BID #30 tabs 08/23/23 magnesium 200 mg tablet 200 mg PO DAILY 10/03/23 magnesium citrate 125 mg capsule 125 mg PO DAILY 10/03/23 magnesium gluconate 12.5 mg 500 mg PO TID 10/03/23 magnesium (250 mg) tablet allopurinol 100 mg tablet 100 mg PO DAILY 01/02/24 Current Visit Medications: Current Medications Generic Name Dose Route Start Last Admin Trade Name Freq PRN Reason Stop Dose Admin Acetaminophen 1,000 mg 01/04/24 06:00 Acetaminophen 500 Mg Tab PO 01/04/24 16:00 PREOP KAYLAN Celecoxib 200 mg 01/04/24 06:00 Celecoxib 200 Mg Cap PO 01/04/24 16:00 PREOP KAYLAN Gabapentin 300 mg 01/04/24 06:00 Gabapentin 300 Mg Cap PO 01/04/24 16:00 PREOP KAYLAN Hydromorphone HCl 0.2 mg 01/03/24 17:01 Hydromorphone 2 Mg/Ml Syr IVP 02/02/24 17:00 Q1H PRN PRN Ringer's Solution 1,000 mls @ 80 mls/hr 01/04/24 06:00 IV 02/02/24 23:59 INFUSION KAYLAN IV Miscellaneous Supplies 1 each 01/04/24 06:00 Iv Access IV 02/02/24 23:59 DIRECTED KAYLAN Sodium Chloride 0 ml 01/04/24 06:00 Normal Saline Flush 10 Ml Syr IV 02/02/24 23:59 PRN PRN Sodium Chloride 0 ml 01/04/24 06:00 Normal Saline 10 Ml Vial IJ 02/02/24 23:59 DIRECTED PRN Sterile Water 0 ml 01/04/24 06:00 Water,Injection,Sterile 10 Ml Vial IJ 02/02/24 23:59 DIRECTED PRN Tramadol HCl 50 mg 01/03/24 17:01 Tramadol 50 Mg Tab PO 02/02/24 17:00 Q6H PRN PRN Pain PFSH Active Problems Active Problems: Problem Status Onset Code Skin breakdown R23.8 Bilateral inguinal hernia (BIH) K40.20 Alcoholism F10.20 Gout M10.9 Skin cancer C44.90 Lipoma of back D17.1 Benign prostatic hyperplasia N40.0 Chronic sinusitis J32.9 Mitral regurgitation 12/13/14 I34.0 Pulmonary embolism 12/06/16 I26.99 Venous insufficiency I87.2 Kidney stone on left side N20.0 Internal derangement of left knee ~05/05/19 M23.92 Zoster B02.9 Fecal incontinence with incomplete defecation R15.9, R15.0 Hypertension I10 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.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 Adenomatous polyps ~04/01/21 D36.9 Right wrist pain M25.531 Onychomycosis B35.1 Skin lesion L98.9 Nail dystrophy L60.3 Metatarsalgia M77.40 Pain, foot M79.673 Medical History Medical History Seasonal allergies GERD (gastroesophageal reflux disease) Osteoarthritis Surgical History Surgical History PROCEDURE INCISION PILONIDAL SINUS EXE CORINNA BACK (06/18/15) BRINDA CAHUHAN Extraction of cataract 03/2012 LEFT EYE; 01/19/15 RIGHT EYE Tobacco Smoking/Tobacco Use Status: Former Tobacco Use Passive smoking exposure: Yes Second hand exposure: Yes Alcohol Alcohol Intake: current Alcohol intake frequency: 0-2 drinks per day Alcohol type: wine Substance Use Substance use: Never Substance use type: does not use Details: Last glass of wine 01/03/2024 1830 Vital Signs and Lab Results Vital Signs Most Recent Vital Signs in EMR: Most Recent Vital Signs Temp Pulse Resp BP Pulse Ox 36.4 C L 64 18 158/82 H 100 01/04/24 09:06 01/04/24 09:06 01/04/24 09:06 01/04/24 09:06 01/04/24 09:06 Lab Results Blood Type / Crossmatch: No Data to Display Complete Blood Count: No Data to Display Complete Metabolic Panel: No Data to Display Liver Function Panel: No Data to Display Coagulation Panel: No Data to Display Cardiac Panel: No Data to Display Arterial Blood Gas: No Data to Display Venous Blood Gas: No Data to Display Pancreas Panel: No Data to Display Thyroid Panel: No Data to Display Infectious Disease: No Data to Display Blood Cultures: No Data to Display Toxicology Panel: No Data to Display Imaging and Studies Imaging and Studies Study information below may be from another EMR and interpreted by another provider. Please see original notes in EMR for more complete details. Echocardiogram Summary: 12/10/14 Summary: 1. Left ventricle: The cavity size was normal. There was mild focal basal hypertrophy of the septum. Systolic function was normal. The estimated ejection fraction was 55-60%. Wall motion was normal; there were no regional wall motion abnormalities. 2. Aortic valve: Trivial regurgitation. 3. Mitral valve: Mild regurgitation. 4. Left atrium: The atrium was moderately to severely dilated. 5. Right ventricle: The cavity size was normal. Wall thickness was normal. Systolic function was normal. 6. Inferior vena cava: The vessel was dilated; the respirophasic diameter changes were in the normal range (greater than or equal to 50%). Anesthesia Assessment and Plan Anesthesia History Personal History: No History of Anesthesia Complications Family History: No Family History of Anesthesia Complications Exercise Tolerance Exercise Tolerance: Metabolic Equivalents>4 Pertinent Negatives Pertinent Negatives: No Symptoms of GERD, No Major Cardiovascular Symptoms or Complaints, No Major Pulmonary Symptoms or Complaints and No History of CVA/TIA Cardiac & Pulmonary Exam Cardiac Exam: Normal S1/S2 Heart Sounds Pulmonary Exam: Clear Bilateral Breath Sounds Cardiac and Pulmonary Comment:: pt reports reflux under control with medication Implantable Cardiac Device Does patient have a Pacemaker or an ICD?: No Airway Exam Known Difficult Airway: No Mallampati Class: 3 Mouth Opening: Normal (> 3cm) Thyromental Distance: Greater than 3 cm Neck Range of Motion: Limited ROM Neck Circumference: Normal Teeth Condition: Normal Dentition (one implant ) ASA Classification ASA Score: ASA 2 Emergency Case?: No NPO Status NPO Status: NPO Clears >2 hours, Solids >8 hours Anesthesia Plan Resuscitation Status: Full Code Anesthesia Technique: General Anesthesia Airway Planned: LMA Monitors Used: Standard Monitors
[2024-01-04] MEDS: Gabapentin 300 MG CAP PO (09:25)
[2024-01-04] MEDS: Celecoxib 200 MG CAP PO (09:26)
[2024-01-04] MEDS: Acetaminophen 500 MG TAB 1000 MG PO (09:26)
[2024-01-04] MEDS: Lactated Ringers 1,000 ML 80 ML IV (09:42)
--- NOTE | 2024-01-04 09:43 | W.PREOPHP ---
Assessment and Plan Assessment and plan (1) Bilateral inguinal hernia (BIH): Status: Acute Assessment and plan: We reviewed the plan for open bilateral inguinal hernias today, and reviewed the risks and benefits of the procedure once again. He has a understanding of what to expect, and is able to provide consent, and we will proceed as planned History of Present Illness History of Present Illness Chief Complaint: Bilateral inguinal hernias Narrative: Barrington 78 years old, he has bilateral groin hernias that have been increasing in size and become increasingly painful with activity. Since his last office visit, he did have an attack of gout, and has been started on some allopurinol. Otherwise, has been in his usual state of health. PFSH All Active Problems Skin breakdown (Acute) per referral hx pilonidal cyst, surgically repaired yrs ago, now causing skin fold & break down with occasional drainage Bilateral inguinal hernia (BIH) (Acute) right greater than left per referral Alcoholism (Acute) Gout (Chronic) Skin cancer (Acute) basal cell and squamous cell Lipoma of back (Acute) Benign prostatic hyperplasia (Acute) Chronic sinusitis (Acute) Mitral regurgitation (Acute 12/13/14) echo 12/16. Mild MR. Dilated left atrium due to ??? possible test variation Pulmonary embolism (Acute 12/06/16) no source found. life long anticoag. Venous insufficiency (Chronic) Kidney stone on left side (Acute) Internal derangement of left knee (Acute ~05/05/19) Zoster (Acute) Fecal incontinence with incomplete defecation (Acute) Hypertension (Chronic) Sensorineural hearing loss (SNHL) of right ear with restricted hearing of left ear (Acute) Adenomatous polyps (Acute ~04/01/21) repeat 2021 Right wrist pain (Acute) Onychomycosis (Acute) Skin lesion (Acute) Nail dystrophy (Acute) Metatarsalgia (Acute) Pain, foot (Acute) Medical History Seasonal allergies GERD (gastroesophageal reflux disease) Osteoarthritis Surgical History PROCEDURE INCISION PILONIDAL SINUS EXE [facility] BACK (06/18/15) BRINDA CHAUHAN Extraction of cataract 03/2012 LEFT EYE; 5/19/15 RIGHT EYE Family History Mother , 96+ No problems noted. Father , 94+ No problems noted. Brother Heart disease Maternal Grandfather Throat cancer Paternal Grandfather No problems noted. Maternal Grandmother , 65 Diabetes Paternal Grandmother No problems noted. Social History Smoking/Tobacco Use Status: Former Tobacco Use Quit Date: 09/03/88 Tobacco: How many years used: 20 Second Hand Exposure: Yes Smoking risk assessment performed?: Yes Alcohol Intake: current Alcohol Intake frequency: 0-2 drinks per day Alcohol type: wine Drug use: Never Substance use type: does not use Details: Last glass of wine 01/03/20241829 Housing: house Duration: > 90 minutes/day Frequency: daily [place]/Hoahaoism: None Special sydney needs: No Seatbelt use: always Helmet use: No Drive intox or ride w/intox waste collection driver: No Do you feel safe at home: Yes Do you feel safe in your relationship?: Yes Meds Allergies and Home Medications Allergies Allergy/AdvReac Type Severity Reaction Status Date / Time amlodipine AdvReac Intermediate edema Verified 01/04/24 09:12 Home Medications Medication Instructions Recorded Confirmed Type glucosamine 750 va-mucjie-ryw 2-C 1 ea PO DAILY 01/29/18 01/04/24 History 30 mg-D3 1,000 unit-tonny 1 mg tablet (Ofrchqjfdzx-Xgzbtymkyku-YIK + vitD) psyllium husk 0.4 gram capsule 0.4 g PO DAILY 04/21/21 01/04/24 History (Metamucil) cetirizine 10 mg tablet 10 mg PO DAILY #90 tab-caps 01/02/22 01/04/24 Rx fluticasone propionate 50 1 spray intranasal BID PRN nasal 11/21/22 01/04/24 Rx mcg/actuation nasal congestion #16 grams spray,suspension (Flonase Allergy Relief) apixaban 2.5 mg tablet 2.5 mg PO BID #180 tabs 05/16/23 01/04/24 Rx famotidine 20 mg tablet 20 mg PO BID #180 tabs 05/16/23 01/04/24 Rx hydrochlorothiazide 25 mg tablet 25 mg PO QAM #90 tabs 05/16/23 01/04/24 Rx sildenafil 50 mg tablet 50 mg PO DAILY PRN sexual activity 05/30/23 01/04/24 Rx #10 tabs colchicine 0.6 mg tablet 0.6 mg PO BID #30 tabs 08/23/23 01/04/24 Rx magnesium 200 mg tablet 200 mg PO DAILY 10/03/23 01/04/24 History magnesium citrate 125 mg capsule 125 mg PO DAILY 10/03/23 01/04/24 History magnesium gluconate 12.5 mg 500 mg PO TID 10/03/23 01/04/24 History magnesium (250 mg) tablet allopurinol 100 mg tablet 100 mg PO DAILY 01/02/24 01/04/24 History Exam Const General: cooperative, healthy appearing and not in acute distress Neck Neck: normal visual inspection, no lymphadenopathy and supple Thyroid: thyroid normal Resp Effort & Inspection: normal respiratory effort Auscultation: clear to auscultation bilaterally Cardio Jugular venous pressure: no JVD Rate: regular rate Rhythm: regular rhythm Heart Sounds: S1 normal and S2 normal GI Inspection: normal to inspection Palpation: soft, no guarding, hernia (Bilateral inguinal hernias) and nontender Percussion: normal to percussion Auscultation: normal bowel sounds Neuro General: patient alert, patient awake and patient oriented x3 Psych Appearance: grossly normal Results Last Vital Signs Temp 97.5 F L 01/04/24 09:06 Pulse 64 01/04/24 09:06 Resp 18 01/04/24 09:06 BP 158/82 H 01/04/24 09:06 Pulse Ox 100 01/04/24 09:06
--- NOTE | 2024-01-04 10:50 | W.ANESNERVE ---
Nerve Block Single Injection Procedure Date and Time Date Performed: 01/04/24 Procedure Start: 10:15 Location Where Procedure Performed Procedure Location: Operating Room Procedure Stop: 10:30 Reason Performed: Postoperative Analgesia Requesting Provider: Edy Nevarez Timeout Performed Timeout Performed: Yes Monitoring Used ECG, Blood Pressure, SpO2, ETCO2 and See EMR for corresponding vital signs Sterility Sterility: Hand Hygiene, Surgical Cap, Surgical Mask, Sterile Gloves and Chlorhexidine Sedation Given During Procedure Sedation Given (Indicate Dose Given): No Sedation given Patient Mental Status Patient Mental Status: Performed under general anesthesia Nerve Block 1st Nerve Block: Laterality: Bilateral Block Type: TAP Bilateral Ultrasound Image Saved?: Yes Needle / Catheter Used: 100mm SonoPlex II Local Anesthetic Bolus (Indicate Dose Given): Injected in 3-5ml increments after negative blood aspiration, Half of Total block solution given into each side, Bupivacaine 0.25% Dose:: 20mL and Exparel Dose:: 20mL Additives (Indicate Dose Given): None Ultrasound: Sterile probe cover and gel used Nerve Stimulator: Not Used Paresthesia: None Procedure Tolerated: No Complications and Patient tolerated well Procedure Outcome: Successful Performed By: Marely Haider Supervised By: Matilde Camara
[2024-01-04] MEDS: Bupivacaine 0.5% Pres-Free W/EPI 30 ML VIAL (11:45)
--- NOTE | 2024-01-04 13:14 | W.ANESPOSTOP ---
Postoperative Evaluation Date, Time and Location Date Performed: 01/04/24 Time Performed: 13:14 Patient Location: Day Surgery Unit Vital Signs Most Recent Imported Vital Signs: Most Recent Vital Signs Temp Pulse Resp BP Pulse Ox 36.1 C L 54 L 16 152/84 H 98 01/04/24 12:50 01/04/24 12:50 01/04/24 12:50 01/04/24 12:50 01/04/24 12:50 Pain Score Most Recent Pain Score: Most Recent Pain Score Pain Level 2 01/04/24 12:50 Assessment Mental Status: Awake (Alert & Oriented to Patient Baseline) Airway and Respiratory Function: Patent airway with normal (patient baseline) respiratory exam Cardiovascular Function: Hemodynamically Stable Hydration Status: Adequately Hydrated Nausea & Vomiting: No Nausea or Vomiting Pain: Pain is tolerable per patient Peripheral Nerve Block: Regional nerve block not resolved at time of post operative discharge
== END 2024-01-04 13:56 | disposition home or self-care (01) ==
LOC: SUR 09:03
PROVIDERS: PCP Nurse Practitioner Family; Referring Provider Neuromusculoskeletal Medicine & OMM; Visit Provider Surgery
PROC: (CPT 49505; principal; 2024-01-04 10:30)
DX: K40.20 Bilateral inguinal hernia, without obstruction or gangrene, not specified as recurrent (principal); I10 Essential (primary) hypertension
CPT/HCPCS: 49505; 76942; C1781; C9290; J0665; J0690; J1100; J1885; J2001; J2405; J2704

== ENCOUNTER → 2024-01-22 08:18 | Outpatient (BNVA) | payer MEDICARE, SELFPAY | PROVIDERS: PCP Nurse Practitioner Family; Referring Provider Nurse Practitioner Family; Visit Provider Surgery | DX: Z48.817 Encounter for surgical aftercare following surgery on the skin and subcutaneous tissue (principal) ==

== ENCOUNTER 2024-02-14 01:07 | Outpatient (CLI) | payer MEDICARE, SELFPAY ==
[2024-02-14 11:29] LABS: CREATININE 1.1 mg/dL (0.70-1.30); Calculated LDL 84 mg/dL (<100); Cholesterol 182 mg/dL (<200); Estimated GFR 68.71 (mL/min/1.73m2); HDL Cholesterol 93 mg/dL (40-60); Potassium 3.9 mmol/L (3.5-5.1); Triglyceride 26 mg/dL (<150)
[2024-02-14 22:39] LABS: PSA, Screening 0.9 ng/mL (<=6.5)
== END 2024-02-14 01:08 | disposition home or self-care (01) ==
LOC: LBO 01:07
PROVIDERS: PCP Nurse Practitioner Family; Visit Provider Nurse Practitioner Family
DX: I10 Essential (primary) hypertension (principal); F10.20 Alcohol dependence, uncomplicated; Z12.5 Encounter for screening for malignant neoplasm of prostate
CPT/HCPCS: 36415; 80061; 84153; 82565; 84132

== ENCOUNTER → 2024-04-10 14:57 | Outpatient (BNVA) | payer MEDICARE, SELFPAY | PROVIDERS: PCP Nurse Practitioner Family; Referring Provider Nurse Practitioner Family; Visit Provider Physical Therapy Assistant | DX: Z12.11 Encounter for screening for malignant neoplasm of colon (principal); Z86.010 Personal history of colon polyps ==

== ENCOUNTER 2024-05-26 06:06 | Day surgery (SDC) | payer MEDICARE, SELFPAY ==
--- NOTE | 2024-05-25 11:16 | PDOC.DSDIS_ITS ---
Date of service: 05/26/24 Time of Service: 08:07 Discharge Plan Disposition Patient Disposition: Home Condition: Good Discharge Details Reason For Visit: screening colonoscopy Attending Provider: Edy Nevarez Primary Care Provider: Aleksandr Duarte Home Meds and New Rx's Prescriptions: Continued tetanus-diphtheria toxoids-Td 2-2 Lf unit/0.5 mL suspension 0.5 ml IM ONCE Qty: 0.5 0RF psyllium husk [Metamucil] 0.4 gram capsule 0.4 g PO DAILY magnesium 200 mg tablet 200 mg PO DAILY magnesium gluconate 12.5 mg magne- sium (250 mg) tablet 500 mg PO TID magnesium citrate 125 mg capsule 125 mg PO DAILY Eppucdru-Jteqps-ZUW with vit D 1 EACH tablet 1 ea PO DAILY cetirizine 10 mg tablet 10 mg PO DAILY Qty: 90 3RF sildenafil 50 mg tablet 50 mg PO DAILY PRN (Reason: sexual activity) Qty: 10 3RF Rx Instructions: administer 30 minutes to 4 hours before activity colchicine 0.6 mg tablet 0.6 mg PO BID Qty: 30 0RF Rx Instructions: Take two tablets on first day and then one hour later take one more tablet. On day two take twice daily until symptoms resolve. fluticasone propionate [Flonase Allergy Relief] 50 mcg/actuation spray,suspension 1 spray intranasal BID PRN (Reason: nasal congestion) Qty: 16 0RF Rx Instructions: administer into each nostril hydrochlorothiazide 25 mg tablet 25 mg PO QAM Qty: 90 3RF famotidine 20 mg tablet 20 mg PO BID Qty: 180 3RF allopurinol 100 mg tablet 100 mg PO DAILY Patient Comments: TAKE ONE TABLET BY MOUTH EVERY DAY Held apixaban 2.5 mg tablet 2.5 mg PO BID Qty: 180 3RF Hold Instructions: Resume on 05/27/24. Discontinued bisacodyl [Dulcolax (bisacodyl)] 5 mg tablet,delayed release (DR/EC) 5 mg PO ONCE Qty: 4 0RF Rx Instructions: Take per colonoscopy instructions provided by ordering providers office polyethylene glycol 3350 17 gram/dose powder 17 g PO ONCE Qty: 238 0RF Rx Instructions: Take per colonoscopy instructions provided by ordering providers office Discharge Instructions Instructions: Colon polyps, Diverticulosis Additional Instructions: Barrington we were able to complete your colonoscopy today without any difficulty. I hope you are comfortable. I did find and removed 2 polyps today. Neither of them appear particularly worrisome. Regardless, we will send them off for the pathologist to test. Polyp results usually take about a week or so to get the results from, and once I have those, the office will be in touch with any other recommendations. Incidentally, he also have a little bit of diverticulosis. I would encourage you to maintain a diet that is rich in fiber and stay well- hydrated to avoid any potential complications of diverticulosis. Have attached a little bit of information here about polyps as well as diverticular disease. If you have any questions at all, please do not hesitate to ask. 1. If tolerated, consume a soft, low fiber diet for 1-2 days. 2[address] Do not drive, drink alcohol, operate machinery, make critical decisions, or do activities that require coordination or balance for 24 hours. 3. Because air was put into your colon during the procedure, expelling air from your rectum (passing gas or farting) is normal. 4. You may not have a bowel movement for 1-3 days because of the colonoscopy prep. This is normal. 5. Go directly to the emergency room if you notice any of the following: Develop chills (warm to touch), or if you have a thermometer and your temperature is above 101 Difficulty breathing or difficultly swallowing Persistent vomiting Severe abdominal pain, other than gas cramps Severe chest pain Black, tarry stools Any bleeding ? exceeding one tablespoon 6. Call your physician if the site where your intravenous was started becomes red, swollen, painful, and warm to touch. 7. Your physician has reviewed your pre-procedure medications. Please continue to take those medications as previously ordered. You will be given specific information/education regarding any changes to your medications before leaving. Activity:: Activity as Tolerated Diet:: As Tolerated Discharge Orders Discharge Orders: Discharge Order (Routine); Ordered 05/25/24 Ordered By: Edy Nevarez DS: Diagnosis Discharge Diagnosis (1) Encounter for screening colonoscopy: Status: Acute Asessment and Plan: Follow-up on polypectomy results
--- NOTE | 2024-05-25 11:18 | W.COLOREPORT ---
Date of service: 05/26/24 Time of Service: 08:08 Colonoscopy Report Date of procedure: 05/26/24 Pre-op diagnosis general: screening colonoscopy Post-op diagnosis procedure note: other (Colon polyps, diverticulosis) Procedure: colonoscopy with polypectomy Surgeon: Edy Nevarez Anesthesia Type: General:No Airway Estimated blood loss (mL): 10 Pathology: other (0.5 cm pedunculated cecal polyp, 0.25 cm flat polyp at 45 cm) Complications: None Disposition: same day Indications: Barrington is a 79 year old man who needs his next screening colonoscopy Prep: Miralax/Dulcolax Procedure Start Time: 07:39 Procedure End Time: 08:01 Retraction Time: 9 Findings: Sigmoid diverticulosis, 0.5 cm pedunculated cecal polyp, 0.25 cm flat polyp at 45 cm Procedure Description: After the induction of anesthesia, and with the patient in left lateral decubitus position, I began by performing an external anorectal exam.? Perineum and skin were normal, as was the anal verge.? There was no evidence of external hemorrhoids.? Next, I performed a digital rectal exam.? I did not appreciate any abnormal findings.? Next, I advanced a colonoscope into the rectal vault.? I performed retroflexion.? This appeared normal.? Using insufflation, I then advanced the colonoscope beyond the rectal folds and into the sigmoid colon before advancing towards the cecum.? There was some sigmoid diverticulosis.? The scope was noted to be in the cecum by identification of the ileocecal valve and appendiceal orifice.? Just a few centimeters away from the appendix was a 0.5 cm pedunculated polyp. This was retrieved with cold snare polypectomy. There was minimal bleeding. I then began withdrawing the colonoscope using repeated irrigation as necessary for full evaluation of the colonic mucosa. Around 45 cm from the anal verge I identified a 0.25 cm polyp. ?It appeared flat in character. ?I was able to remove this with a cold forcep polypectomy. ?I examined the site, and there was minimal bleeding. ?Once this was completed, I continued to withdraw the scope and examine the remainder of the colonic mucosa.?Once the scope was withdrawn to the level of the rectum, great care was taken to examine portions of the rectal folds.? Finally, the scope was withdrawn and the patient was brought to the same-day surgery recovery unit as the anesthetic wore off. ?The findings and instructions were shared with the patient prior to discharge. [place] Bowel Prep [place] Bowel Prep Right Colon: 3 Left Colon: 3 Transverse Colon: 3 Total Score: 9
[2024-05-26 06:10] VITALS: BP 134/67; PULSE 56; RESP 17; TEMP 36.4; O2SAT 98
[2024-05-26] MEDS: Lactated Ringers 1,000 ML 80 ML IV (06:53)
--- NOTE | 2024-05-26 07:03 | ANES.PREOP_ITS ---
General Info Date of Service Date Performed: 05/26/24 Height: 6 ft 5 in Weight: 96.3 kg Body Mass Index (BMI): 25.2 Surgical Procedure: Operation Date: 05/26/24 07:35 Proposed Procedure Side Surgeon p Colonoscopy Edy Nevarez MD Actual Procedure Side Surgeon p Colonoscopy Not Applicable Edy Nevarez MD Pre-Op Diagnosis Post-Op Diagnosis Screening colonoscopy History of polyps Meds Allergies and Home Medications Allergies Allergy/AdvReac Type Severity Reaction Status Date / Time amlodipine AdvReac Intermediate edema Verified 05/26/24 06:28 Home Medication ?Medication ?Instructions ?Recorded glucosamine 750 rn-soylvr-uwp 2-C 1 ea PO DAILY 01/29/18 30 mg-D3 1,000 unit-tonny 1 mg tablet (Ngsvllhiywb-Hiwtltaxwav-LYW + vitD) psyllium husk 0.4 gram capsule 0.4 g PO DAILY 04/21/21 (Metamucil) cetirizine 10 mg tablet 10 mg PO DAILY #90 tab-caps 01/02/22 sildenafil 50 mg tablet 50 mg PO DAILY PRN sexual activity 05/30/23 #10 tabs colchicine 0.6 mg tablet 0.6 mg PO BID #30 tabs 08/23/23 magnesium 200 mg tablet 200 mg PO DAILY 10/03/23 magnesium citrate 125 mg capsule 125 mg PO DAILY 10/03/23 magnesium gluconate 12.5 mg 500 mg PO TID 10/03/23 magnesium (250 mg) tablet allopurinol 100 mg tablet 100 mg PO DAILY 01/02/24 tetanus-diphtheria toxoids-Td 2 Lf 0.5 ml IM ONCE #0.5 mL 01/30/24 unit-2 Lf unit/0.5 mL IM suspension apixaban 2.5 mg tablet 2.5 mg PO BID #180 tabs 03/26/24 fluticasone propionate 50 1 spray intranasal BID PRN nasal 05/07/24 mcg/actuation nasal congestion #16 grams spray,suspension (Flonase Allergy Relief) hydrochlorothiazide 25 mg tablet 25 mg PO QAM #90 tabs 05/07/24 famotidine 20 mg tablet 20 mg PO BID #180 tabs 05/08/24 Current Visit Medications: Current Medications Generic Name Dose Route Start Last Admin Trade Name Freq PRN Reason Stop Dose Admin Ringer's Solution 1,000 mls @ 80 mls/hr 05/26/24 06:00 05/26/24 06:53 IV 05/26/24 23:59 80 mls/hr INFUSION KAYLAN Administration IV Miscellaneous Supplies 1 each 05/26/24 06:00 Iv Access IV 05/26/24 23:59 DIRECTED KAYLAN Ondansetron HCl 4 mg 05/25/24 11:16 Ondansetron 4 Mg/2 Ml Vial IVP 06/24/24 11:15 Q4H PRN PRN Nausea / Vomiting Sodium Chloride 0 ml 05/26/24 06:00 Normal Saline Flush 10 Ml Syr IV 05/26/24 23:59 PRN PRN Sodium Chloride 0 ml 05/26/24 06:00 Normal Saline 10 Ml Vial IJ 05/26/24 23:59 DIRECTED PRN Sterile Water 0 ml 05/26/24 06:00 Water,Injection,Sterile 10 Ml Vial IJ 05/26/24 23:59 DIRECTED PRN PFSH Active Problems Active Problems: Problem Status Onset Code Encounter for screening colonoscopy Acute Z12.11 Chronic anticoagulation Acute Z79.01 Skin breakdown Acute R23.8 Bilateral inguinal hernia (BIH) Acute K40.20 Alcoholism Acute F10.20 Gout Chronic M10.9 Skin cancer Acute C44.90 Lipoma of back Acute D17.1 Benign prostatic hyperplasia Acute N40.0 Chronic sinusitis Acute J32.9 Mitral regurgitation Acute 12/13/14 I34.0 Pulmonary embolism Acute 0517 I26.99 Venous insufficiency Chronic I87.2 Kidney stone on left side Acute N20.0 Internal derangement of left knee Acute ~05/05/19 M23.92 Zoster Acute B02.9 Fecal incontinence with incomplete defecation Acute R15.9, R15.0 Hypertension Chronic I10 Sensorineural hearing loss (SNHL) of right ear with restricted hearing of left ear Acute H90.A21 Adenomatous polyps Acute ~04/01/21 D36.9 Right wrist pain Acute M25.531 Onychomycosis Acute B35.1 Skin lesion Acute L98.9 Nail dystrophy Acute L60.3 Metatarsalgia Acute M77.40 Pain, foot Acute M79.673 Medical History Medical History Seasonal allergies GERD (gastroesophageal reflux disease) Osteoarthritis Surgical History Surgical History (Updated 05/26/24 @ 06:35 by Aleah Garduno RN) Hx of foot surgery History of bilateral inguinal hernia repair (~01/2024) PROCEDURE INCISION PILONIDAL SINUS EXE [facility] BACK (06/18/15) [facility]INDA [facility] Extraction of cataract 03/2012 LEFT EYE; 01/19/15 RIGHT EYE Tobacco Smoking/Tobacco Use Status: Former Tobacco Use Passive smoking exposure: Yes Second hand exposure: Yes Alcohol Alcohol Intake: current Alcohol intake frequency: 0-2 drinks per day Alcohol type: wine Substance Use Substance use: Never Substance use type: does not use Vital Signs and Lab Results Vital Signs Most Recent Vital Signs in EMR: Most Recent Vital Signs Temp Pulse Resp BP Pulse Ox 36.4 C L 56 L 17 134/67 98 05/26/24 06:10 05/26/24 06:10 05/26/24 06:10 05/26/24 06:10 05/26/24 06:10 Lab Results Blood Type / Crossmatch: No Data to Display Complete Blood Count: No Data to Display Complete Metabolic Panel: No Data to Display Liver Function Panel: No Data to Display Coagulation Panel: No Data to Display Cardiac Panel: No Data to Display Arterial Blood Gas: No Data to Display Venous Blood Gas: No Data to Display Pancreas Panel: No Data to Display Thyroid Panel: No Data to Display Infectious Disease: No Data to Display Blood Cultures: No Data to Display Toxicology Panel: No Data to Display Imaging and Studies Imaging and Studies Study information below may be from another EMR and interpreted by another provider. Please see original notes in EMR for more complete details. Echocardiogram Summary: 12/10/14 Summary: 1. Left ventricle: The cavity size was normal. There was mild focal basal hypertrophy of the septum. Systolic function was normal. The estimated ejection fraction was 55-60%. Wall motion was normal; there were no regional wall motion abnormalities. 2. Aortic valve: Trivial regurgitation. 3. Mitral valve: Mild regurgitation. 4. Left atrium: The atrium was moderately to severely dilated. 5. Right ventricle: The cavity size was normal. Wall thickness was normal. Systolic function was normal. 6. Inferior vena cava: The vessel was dilated; the respirophasic diameter changes were in the normal range (greater than or equal to 50%). Anesthesia Assessment and Plan Anesthesia History Personal History: No History of Anesthesia Complications Family History: No Family History of Anesthesia Complications Exercise Tolerance Exercise Tolerance: Metabolic Equivalents>4 Pertinent Negatives Pertinent Negatives: No Major Pulmonary Symptoms or Complaints Cardiac & Pulmonary Exam Cardiac Exam: Normal S1/S2 Heart Sounds Pulmonary Exam: Clear Bilateral Breath Sounds Implantable Cardiac Device Does patient have a Pacemaker or an ICD?: No Airway Exam Known Difficult Airway: No Mallampati Class: 2 Mouth Opening: Normal (> 3cm) Thyromental Distance: Greater than 3 cm Neck Range of Motion: Limited ROM Neck Circumference: Normal Teeth Condition: Normal Dentition (one implant ) ASA Classification ASA Score: ASA 3 Emergency Case?: No NPO Status NPO Status: NPO Clears >2 hours, Solids >8 hours Anesthesia Plan Resuscitation Status: Full Code Anesthesia Technique: General Anesthesia Airway Planned: Natural Airway Monitors Used: Standard Monitors
[2024-05-26 07:05] VITALS: BMI 25.2
--- NOTE | 2024-05-26 07:09 | HPE_ITS ---
Assessment and Plan Assessment and plan (1) Encounter for screening colonoscopy: Status: Acute Assessment and plan: We reviewed the indication for routine screening colonoscopy as part of basic health maintenance. Barrington had a chance to ask any other questions. Reviewed the risks and the benefits of the procedure, we can proceed as planned. History of Present Illness History of Present Illness Chief Complaint: screening colonoscopy Narrative: 79 y/o male with history of GERD, OA, PE (chronically anticoagulated), mitral regurg, gout and HTN presents for colonoscopy screening pre-op. His last screening was in 2021 at [facility] , which was remarkable for tubulovillious adenoma and tubular adenoma x 2. He denies a family history of colon cancer. He denies any changes in bowel habits including bloody or black tarry stools, abdominal pain, diarrhea or constipation. He describes he is able to keep his BMs regular with the use of metamucil. He denies constitutional symptoms. He denies chest pain, palpitations, dyspnea or dyspnea with exertion. He denies prior history or family history of adverse reactions or complications with anesthesia. The patient denies any history of stroke, CO, seizures, bleeding or clotting disorders. He has metal implanted in his right foot. [facility] All Active Problems Encounter for screening colonoscopy (Acute) Chronic anticoagulation (Acute) Skin breakdown (Acute) per referral hx pilonidal cyst, surgically repaired yrs ago, now causing skin fold & break down with occasional drainage Bilateral inguinal hernia (BIH) (Acute) Jan 04 2024 repaired both. Alcoholism (Acute) Daily, less than half glass of wine. Gout (Chronic) Skin cancer (Acute) basal cell and squamous cell Lipoma of back (Acute) Benign prostatic hyperplasia (Acute) Chronic sinusitis (Acute) Mitral regurgitation (Acute 12/13/14) echo 12/16. Mild MR. Dilated left atrium due to ??? possible test variation Pulmonary embolism (Acute 12/06/16) no source found. life long anticoag. Venous insufficiency (Chronic) Kidney stone on left side (Acute) Internal derangement of left knee (Acute ~05/05/19) Zoster (Acute) Fecal incontinence with incomplete defecation (Acute) Hypertension (Chronic) Sensorineural hearing loss (SNHL) of right ear with restricted hearing of left ear (Acute) Adenomatous polyps (Acute ~04/01/21) repeat 2021 Right wrist pain (Acute) Onychomycosis (Acute) Skin lesion (Acute) Nail dystrophy (Acute) Metatarsalgia (Acute) Pain, foot (Acute) Medical History Seasonal allergies GERD (gastroesophageal reflux disease) Osteoarthritis Surgical History (Updated 05/26/24 @ 06:35 by Aleah Garduno RN) Hx of foot surgery History of bilateral inguinal hernia repair (~01/2024) PROCEDURE INCISION PILONIDAL SINUS EXE [facility] BACK (06/18/15) BRINDA ROSASEN Extraction of cataract 03/2012 LEFT EYE; 01/19/15 RIGHT EYE Family History Mother , 96+ No problems noted. Father , 94+ No problems noted. Brother Heart disease Maternal Grandfather Throat cancer Paternal Grandfather No problems noted. Maternal Grandmother , 65 Diabetes Paternal Grandmother No problems noted. Social History Smoking/Tobacco Use Status: Former Tobacco Use tobacco type: cigarettes Quit Date: 09/03/88 Tobacco: How many years used: 20 Quit status: quit date established Second Hand Exposure: Yes Smoking risk assessment performed?: Yes Alcohol Intake: current Alcohol Intake frequency: 0-2 drinks per day Alcohol type: wine Drug use: Never Substance use type: does not use Adopted: No Household members: none Housing: house Communication Needs: Hard of Hearing Education Level: master's degree Do you need help understanding health information?: Rarely current occupation: retired Sexually active: No Do you think of yourself as: straight/heterosexual Current gender identity: male What is your relationship status?: How often do you talk on the phone with friends or family?: three or more times per week How often do you get together with friends or relatives?: three or more times per week Do you belong to any clubs or organized social groups?: yes Panel score (0-1 are the most socially isolated patients): 2 Duration: > 90 minutes/day Frequency: daily [place]/Congregational: None Special syd[place] needs: No Seatbelt use: always Helmet use: No Drive 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 Firearms in home: Yes Firearms unloaded and locked: Yes Do you feel safe at home: Yes Do you feel safe in your relationship?: Yes Victim of physical abuse: No Victim of emotional abuse: No Victim of sexual abuse: No Would you like helpful sources: No Meds Allergies and Home Medications Allergies Allergy/AdvReac Type Severity Reaction Status Date / Time amlodipine AdvReac Intermediate edema Verified 05/26/24 06:28 Home Medications ?Medication ?Instructions ?Recorded ?Confirmed ?Type glucosamine 750 gg-hikhxu-wri 2-C 1 ea PO DAILY 01/29/18 05/26/24 History 30 mg-D3 1,000 unit-tonny 1 mg tablet (Qcfostgiwoe-Phnknsyylhw-PUH + vitD) psyllium husk 0.4 gram capsule 0.4 g PO DAILY 04/21/21 05/26/24 History (Metamucil) cetirizine 10 mg tablet 10 mg PO DAILY #90 tab-caps 01/02/22 05/26/24 Rx sildenafil 50 mg tablet 50 mg PO DAILY PRN sexual activity 05/30/23 05/26/24 Rx #10 tabs colchicine 0.6 mg tablet 0.6 mg PO BID #30 tabs 08/23/23 05/26/24 Rx magnesium 200 mg tablet 200 mg PO DAILY 10/03/23 05/26/24 History magnesium citrate 125 mg capsule 125 mg PO DAILY 10/03/23 05/26/24 History magnesium gluconate 12.5 mg 500 mg PO TID 10/03/23 05/26/24 History magnesium (250 mg) tablet allopurinol 100 mg tablet 100 mg PO DAILY 01/02/24 05/26/24 History tetanus-diphtheria toxoids-Td 2 Lf 0.5 ml IM ONCE #0.5 mL 01/30/24 05/26/24 Rx unit-2 Lf unit/0.5 mL IM suspension apixaban 2.5 mg tablet 2.5 mg PO BID #180 tabs 03/26/24 05/26/24 Rx fluticasone propionate 50 1 spray intranasal BID PRN nasal 05/07/24 05/26/24 Rx mcg/actuation nasal congestion #16 grams spray,suspension (Flonase Allergy Relief) hydrochlorothiazide 25 mg tablet 25 mg PO QAM #90 tabs 05/07/24 05/26/24 Rx famotidine 20 mg tablet 20 mg PO BID #180 tabs 05/08/24 05/26/24 Rx Exam Const General: cooperative, healthy appearing and not in acute distress Neck Neck: normal visual inspection, no lymphadenopathy and supple Thyroid: thyroid normal Resp Effort & Inspection: normal respiratory effort Auscultation: clear to auscultation bilaterally Cardio Jugular venous pressure: no JVD Rate: regular rate Rhythm: regular rhythm Heart Sounds: S1 normal and S2 normal GI Inspection: normal to inspection Palpation: soft, no guarding, no hernias and nontender Percussion: normal to percussion Auscultation: normal bowel sounds Neuro General: patient alert, patient awake and patient oriented x3 Psych Appearance: grossly normal Results Last Vital Signs Temp 97.5 F L 05/26/24 06:10 Pulse 56 L 05/26/24 06:10 Resp 17 05/26/24 06:10 BP 134/67 05/26/24 06:10 Pulse Ox 98 05/26/24 06:10
--- NOTE | 2024-05-26 07:52 | BOWEL_PTH ---
PATIENT: Barrington Arce LOC: [facility] U#:[id number] AGE/SX: 79/M ROOM: RE05/26/[address]: Edy Nevarez MD : 1945 BED: DIS: 05/26/2024 SPEC #: [id number] RECD: 05/26/24 12:50 STATUS: JOSEE RE #: [id number] LULA: 05/26/24 07:[address]: Edy Nevarez DEPT: Surgical Specimen RECD BY: Sydnee Espinoza ENTERED: 05/26/24 12:52 SP TYPE: Bowel OTHR DR: Aleksandr Duarte, DODIE Tissues: 1 - BIOPSY BOWEL 2 - BIOPSY BOWEL Procedures: GROSS AND MICRO LEVEL 4 Comments: [id number]
[2024-05-26 08:06] VITALS: BP 124/73; PULSE 55; RESP 18; TEMP 36.8; O2SAT 97
--- NOTE | 2024-05-26 08:11 | W.ANESPOSTOP ---
Postoperative Evaluation Date, Time and Location Date Performed: 05/26/24 Time Performed: 08:11 Patient Location: Day Surgery Unit Vital Signs Most Recent Imported Vital Signs: Most Recent Vital Signs Temp Pulse Resp BP Pulse Ox 36.8 C 55 L 18 124/73 97 05/26/24 08:06 05/26/24 08:06 05/26/24 08:06 05/26/24 08:06 05/26/24 08:06 Pain Score Most Recent Pain Score: Most Recent Pain Score Pain Level 0 05/26/24 08:06 Assessment Mental Status: Awake (Alert & Oriented to Patient Baseline) Airway and Respiratory Function: Patent airway with normal (patient baseline) respiratory exam Cardiovascular Function: Hemodynamically Stable Hydration Status: Adequately Hydrated Nausea & Vomiting: No Nausea or Vomiting Pain: Pt. Denies Any Pain Peripheral Nerve Block: Patient did not receive a nerve block
[2024-05-26 08:23] VITALS: BP 134/80; PULSE 47; RESP 18; TEMP 36.7; O2SAT 99
== END 2024-05-26 08:43 | disposition home or self-care (01) ==
LOC: SUR 06:06
PROVIDERS: PCP Nurse Practitioner Family; Visit Provider Surgery
PROC: 0DJD8ZZ Inspection of Lower Intestinal Tract, Via Natural or Artificial Opening Endoscopic (ICD-10-PCS; CPT 45378; principal; 2024-05-26 07:30)
DX: Z12.11 Encounter for screening for malignant neoplasm of colon (principal); D12.0 Benign neoplasm of cecum; K57.30 Diverticulosis of large intestine without perforation or abscess without bleeding; D12.5 Benign neoplasm of sigmoid colon
CPT/HCPCS: 45385; 45380; 88305; J2001; J2704

== ENCOUNTER 2025-02-04 15:19 | Outpatient (CLI) | payer MEDICARE, SELFPAY ==
[2025-02-04 15:26] LABS: Hemoglobin A1C 5.7 % (<5.7)
[2025-02-04 16:12] LABS: BUN 24 mg/dL (7-18); CREATININE 1.3 mg/dL (0.70-1.30); Calcium 8.8 mg/dL (8.5-10.1); Cholesterol 174 mg/dL (<200); Estimated GFR 55.88 (mL/min/1.73m2); Glucose 122 mg/dL (74-106); HDL Cholesterol 97 mg/dL (>or=40); Triglyceride 60 mg/dL (<150)
[2025-02-04 16:13] LABS: Anion Gap 2.8 mmol/L (3-11); CO2 31.2 mmol/L (21.0-32.0); Calculated LDL 65 mg/dL (<100); Chloride 102 mmol/L (98-107); Potassium 3.8 mmol/L (3.5-5.1); Sodium 136 mmol/L (136-145)
== END 2025-02-04 15:20 | disposition home or self-care (01) ==
LOC: LBO 15:20
PROVIDERS: PCP Nurse Practitioner Family; Visit Provider Nurse Practitioner Family
DX: Z13.1 Encounter for screening for diabetes mellitus (principal); Z13.6 Encounter for screening for cardiovascular disorders
CPT/HCPCS: 36415; 80048; 80061; 83036

== ENCOUNTER 2025-05-20 02:06 | Outpatient (CLI) | payer MEDICARE, SELFPAY ==
--- NOTE | 2025-05-20 06:15 | DI.RAD_ITS ---
Exam(s) XR FOOT LT COMPLETE XR HEEL LT OS CALCIS EXAM: XR FOOT LT COMPLETE and XR heel left os calcis CLINICAL HISTORY: left foot pain,M79.672. TECHNIQUE: 2D digital imaging was performed of the left heel and foot. Five images were obtained. AP, oblique and lateral views were obtained. COMPARISON: CR XR FOOT RT COMPLETE from 10/11/2023 CR XR HEEL LT OS CALCIS from 05/20/2025 FINDINGS: BONES: No acute fracture is present. No bony destructive lesion is seen. There is a small plantar calcaneal spur. JOINTS: No dislocation present. There is loss of the normal plantar arch. Degenerative changes are seen in the tarsal bones particularly the talonavicular joint. SOFT TISSUE: Normal. IMPRESSION: Degenerative changes seen in the midfoot with pes planus. DATA REPOSITORY: RADIATION DOSE DELIVERED:
== END 2025-05-20 02:26 ==
LOC: DI 02:06
PROVIDERS: PCP Nurse Practitioner Family; Visit Provider Podiatrist
DX: M79.672 Pain in left foot (principal); M72.2 Plantar fascial fibromatosis; G57.92 Unspecified mononeuropathy of left lower limb; I87.2 Venous insufficiency (chronic) (peripheral)
CPT/HCPCS: 36415; 99213; 73630; 73650; 86695; 86696

== ENCOUNTER 2025-05-20 13:28 | Outpatient (CLI) | payer MEDICARE, SELFPAY ==
[2025-05-22 10:26] LABS: HSV Type 2 Ab, IgG Negative (Negative)
== END 2025-05-20 13:29 | disposition home or self-care (01) ==
LOC: LBO 07-03 13:28
PROVIDERS: PCP Nurse Practitioner Family; Visit Provider Nurse Practitioner Family
DX: Z20.2 Contact with and (suspected) exposure to infections with a predominantly sexual mode of transmission (principal)
CPT/HCPCS: 36415; 87529; 86695; 86696

== ENCOUNTER → 2025-06-24 14:29 | Outpatient (BNVA) | payer MEDICARE, SELFPAY | PROVIDERS: PCP Nurse Practitioner Family; Referring Provider Nurse Practitioner Family; Visit Provider Podiatrist | DX: L60.3 Nail dystrophy (principal); B35.1 Tinea unguium; M72.2 Plantar fascial fibromatosis; G57.92 Unspecified mononeuropathy of left lower limb; I87.2 Venous insufficiency (chronic) (peripheral); M79.672 Pain in left foot | CPT/HCPCS: 99214 ==

== ENCOUNTER → 2025-07-07 00:45 | Outpatient (CLI) | payer MEDICARE, SELFPAY ==
--- NOTE | 2025-07-07 07:30 | DI.US_ITS ---
Exam(s) US CAROTID EXAM: US CAROTID CLINICAL HISTORY: amaurosis fugas,G45.3. TECHNIQUE: Ultrasound carotids performed using grayscale, color-flow, and spectral Doppler imaging. COMPARISON: None FINDINGS: CAROTID ARTERIES: There is some plaque evident in the distal common carotid arteries, carotid bulbs and proximal internal carotid arteries bilaterally. However, there are no significantly elevated velocities indicating that the amount of stenosis is less than 50 percent bilaterally VERTEBRAL ARTERIES: Antegrade flow is demonstrated in both vertebral arteries. Measurements: R Bulb: 45.1cm/s PS / 10.2cm/s ED R CCA: 68cm/s PS / 13.7cm/s ED R ECA: 73.4cm/s PS / 8.5cm/s ED R ICA Prox: 84.7cm/s PS / 16.8cm/s ED R ICA Mid: 87.4cm/s PS / 25.4cm/s ED R ICA Distal: 63.6cm/s PS /19.5cm/s ED R Vert: 85.6cm/s PS / 15.8cm/s ED R SVR: 1.3 R DVR: 1.9 L Bulb: 35.6cm/s PS / 8.2cm/s ED L CCA: 72.6cm/s PS / 18.9cm/s ED L ECA: 107.5cm/s PS / 10.8cm/s ED L ICA Prox: 62.2cm/s PS / 17.4cm/s ED L ICA Mid: 61.1cm/s PS / 23.9cm/s ED L ICA Distal: 77.5cm/s PS / 28.3cm/s ED L Vert: 54.5cm/s PS / 16.3cm/s ED L SVR: 1.1 L DVR: 1.5 IMPRESSION: There is plaque bilaterally at the distal common carotid arteries, carotid bulbs, and proximal internal carotid arteries. There are no elevated velocities indicating that the amount of stenosis is less than 50 percent bilaterally. Antegrade flow is demonstrated in both vertebral arteries in the neck. Criteria for Carotid Stenosis: Normal: ICA PSV <125 cm/s no plaque or intimal thickening is visible. <50% stenosis: ICA PSV <125 cm/s and plaque or intimal thickening is visible. 50-69% stenosis: ICA PSV is 125-250 cm/s and plaque is visible. >70% stenosis to near occlusion: ICA PSV >250 cm/s with visible plaque and luminal narrowing. DATA REPOSITORY:
== END ==
LOC: DI 00:45
PROVIDERS: PCP Nurse Practitioner Family; Visit Provider Nurse Practitioner Family
DX: G45.3 Amaurosis fugax (principal)
CPT/HCPCS: 93880